=== PATIENT | female | born 1945 | race Caucasian/White ===

== ENCOUNTER → 2016-07-25 | Outpatient (CLI) | payer MEDICARE, OTHER | LOC: GMAH 10:52 | PROVIDERS: ATTEND Family Medicine | DX: E03.4 Atrophy of thyroid (acquired) (principal); E78.2 Mixed hyperlipidemia ==

== ENCOUNTER → 2017-02-04 | Outpatient (CLI) | payer MEDICARE, OTHER ==
--- NOTE | 2017-02-08 10:53 | MAM ---
EXAM DESCRIPTION: 3D Screening BILATERAL CLINICAL HISTORY: 71 yearsFemaleSCREENING. Postmenopausal. COMPARISON: Digital 2-D screening bilateral examination 09/01/2012.. No prior reports available. TECHNIQUE: Bilateral CC and MLO projection full-field images, 3-D tomosynthesis digital mammographic technique. Also bilateral synthesized CC/ MLO full-field images. CAD not utilized. FINDINGS: The breast parenchymal density pattern is: Scattered areas of fibroglandular density. No skin thickening or nipple retraction bilateral solitary microcalcifications. Bilateral axillary lymph nodes. Bilateral vascular calcifications. No focal, stellate mass or density, focal asymmetry , and no suspicious microcalcifications bilaterally. Stable mammograms compared to the prior study June 2013, taking into account differences in mammographic technique. IMPRESSION: BI-RADS CATEGORY: 2 - BENIGN FINDINGS. FOLLOW UP: Routine digital bilateral screening, one year interval from date Written communication explaining the findings and follow-up, will be mailed to the patient and referring health care provider. According to the [employer], yearly mammograms are recommended starting at age 40 and continuing as long as a woman is in good health. Any breast change noted on a breast self-exam should be reported promptly to the patient's healthcare provider. Breast MRI is recommended for women with an approximately 20-25% or greater lifetime risk of breast cancer, including women with a strong family history of breast or ovarian cancer and women who have been treated for Hodgkin's disease. A negative mammographic report should not delay tissue diagnosis in patients with significant clinical history or physical findings. Extremely dense breast tissue limits the sensitivity of digital mammography. Electronically signed by: Francisco Hughes MD 02/08/2017 10:52 AM CDT Workstation: [id number]
== END ==
LOC: MAMMO 10:46
PROVIDERS: ATTEND Family Medicine
DX: Z12.31 Encounter for screening mammogram for malignant neoplasm of breast (principal)
CPT/HCPCS: G0202; G0279

== ENCOUNTER → 2017-11-26 | Outpatient (CLI) | payer MEDICARE, OTHER | LOC: GMAH 11:49 | PROVIDERS: ATTEND Family Medicine | DX: E03.4 Atrophy of thyroid (acquired) (principal); I10 Essential (primary) hypertension ==

== ENCOUNTER → 2019-01-07 | Outpatient (CLI) | payer MEDICARE, OTHER | LOC: GMAH 10:26 | PROVIDERS: ATTEND Family Medicine | DX: I10 Essential (primary) hypertension (principal); E78.2 Mixed hyperlipidemia ==

== ENCOUNTER → 2019-03-19 | Outpatient (CLI) | payer MEDICARE, OTHER ==
--- NOTE | 2019-03-19 20:11 | US ---
EXAM DESCRIPTION: Venous,Lower Extremity LT: ULTRASOUND. CLINICAL HISTORY: PAIN IN LEFT KNEE, loc edema COMPARISON: Left knee radiographs 03/18/2019. TECHNIQUE: Harding-scale and doppler sonographic evaluation of the deep venous system of the left lower extremity. FINDINGS: Doppler evaluation shows normal color flow and normal phasicity and augmentation of the left common femoral vein, deep femoral vein, femoral vein, popliteal vein, greater saphenous vein junction with the CFV, peroneal, and posterior tibial vein. The left lower extremity deep veins were completely compressible; normal occlusion with transducer pressure. Harding-scale survey showed no echogenic thrombus within these veins. Irregular fluid collection in the left popliteal fossa measuring 4.3 x 1.9 x 1.3 cm and not vascular. IMPRESSION: 1. Duplex ultrasound evaluation of the left lower extremity deep venous system showing no evidence of thrombosis. 2. 4 cm Ruiz's cyst in the popliteal fossa. Electronically signed by: Francisco Hughes MD 03/19/2019 8:09 PM CDT
== END ==
LOC: US 10:01
PROVIDERS: ATTEND Family Medicine
DX: M71.22 Synovial cyst of popliteal space [Baker], left knee (principal); R60.0 Localized edema; M25.562 Pain in left knee

== ENCOUNTER → 2019-03-20 | Outpatient (CLI) | payer MEDICARE, OTHER ==
--- NOTE | 2019-03-20 13:47 | US ---
EXAM DESCRIPTION: Extremity,Lower Amandeep Arteries: Ultrasound. CLINICAL HISTORY: PAIN IN LOWER LEGS COMPARISON: Duplex ultrasound bilateral lower extremity deep venous systems. 03/19/2019. TECHNIQUE: Doppler evaluation of the bilateral lower extremity arterial flow waveforms and velocities. FINDINGS: Arterial waveforms in the right lower extremity are triphasic from the right common femoral artery through the right dorsalis pedis artery. Arterial waveforms in the left lower extremity are triphasic from the left common femoral artery through the left dorsalis pedis artery.. Comments: Elevated velocity in the left DPA could indicate a stenosis in the distal left JONATHAN or proximal left DPA IMPRESSION: Doppler evaluation of the bilateral lower extremity arterial systems showing no evidence of significant atherosclerotic occlusive disease. However, there may be a stenosis or narrowing of the distal left JONATAHN or proximal left DPA. Correlate with clinical findings. Electronically signed by: Francisco Hughes MD 03/20/2019 1:45 PM CDT
== END ==
LOC: US 09:30
PROVIDERS: ATTEND Family Medicine
DX: M79.662 Pain in left lower leg (principal); M79.661 Pain in right lower leg

== ENCOUNTER → 2020-01-14 | Outpatient (CLI) | payer MEDICARE, OTHER | LOC: GMA MATASK 11:07 | PROVIDERS: ATTEND Family Medicine | DX: E03.9 Hypothyroidism, unspecified (principal); E78.2 Mixed hyperlipidemia; I10 Essential (primary) hypertension; Z79.899 Other long term (current) drug therapy ==

== ENCOUNTER → 2020-05-18 | Outpatient (CLI) | payer MEDICARE, OTHER | LOC: GMA MATASK 14:29 | PROVIDERS: ATTEND Family Medicine | DX: N39.0 Urinary tract infection, site not specified (principal) ==